=== PATIENT | female | born 1965 | race Caucasian/White ===

== ENCOUNTER 2022-02-14 02:46 | Emergency (ER) | payer OTHER ==
[~2022-02-14] VITALS: Ht 157.5 cm; Wt 129.3 kg
[2022-02-14] MEDS ORDERED: ONDANSETRON HCL INJ 2MG/ML 2ML 2 MG/ML VIAL IV STA (03:12)
[2022-02-14] MEDS ORDERED: SODIUM CHLORIDE FLUSH 10 ML SYR IV PRN (03:15)
[2022-02-14] MEDS ORDERED: SODIUM CHLORIDE 0.9% 1000ML 1,000 ML IV SCH (03:15)
[2022-02-14] MEDS ORDERED: Morphine 4mg INJECTION 4 MG/ML INJ IV ONE (03:15)
[2022-02-14 03:25] LABS: BASOPHILS # (AUTO) 0.2 (0.0-0.1); BASOPHILS % 0.7 % (0.0-1.0); EOSINOPHILS # (AUTO) 0.2 (0.0-0.4); HEMATOCRIT 49.6 % (34.2-44.1); HEMOGLOBIN 15.8 g/dL (12.0-16.0); LYMPHOCYTES # (AUTO) 10.4 (1.0-3.2); MEAN CORPUSCULAR HEMOGLOBIN 29.8 pg (28-32); MEAN CORPUSCULAR HGB CONC 31.9 g/dL (31-35); MEAN CORPUSCULAR VOLUME 93.6 fL (81-99); MONOCYTES # (AUTO) 1.4 (0.2-0.8); NEUTROPHILS # (AUTO) 10.6 (2.1-6.9); NEUTROPHILS % 46.1 % (38.7-80.0); PLATELET COUNT 338 x10e3/uL (140-360); RED CELL DISTRIBUTION WIDTH 13.9 % (11.7-14.4)
[2022-02-14 03:34] LABS: INR 0.97; PROTHROMBIN TIME 13.8 seconds (11.9-14.5)
[2022-02-14 03:35] LABS: PARTIAL THROMBOPLASTIN TIME 23.8 seconds (23.8-35.5)
[2022-02-14 03:44] LABS: ALBUMIN 4.3 g/dL (3.5-5.0); ALBUMIN/GLOBULIN RATIO 1.1 (0.8-2.0); ANION GAP 18.9 mmol/L (8-16); CREATININE, SERUM 2.75 mg/dL (0.57-1.11); POTASSIUM 3.9 mmol/L (3.5-5.1)
[2022-02-14 04:41] LABS: CLARITY,URINE SL CLOUDY (CLEAR); COLOR,URINE YELLOW (YELLOW); KETONES,URINE TRACE (NEGATIVE); LEUKOCYTE ESTERASE ,URINE NEGATIVE (NEGATIVE); NITRITE,URINE NEGATIVE (NEGATIVE); PROTEIN,URINE DIPSTICK TRACE (NEGATIVE); URINE UROBILINOGEN 0.2 mg/dL (0.2 - 1)
[2022-02-14 04:43] LABS: BACTERIA,URINE MODERATE /HPF; EPITHELIAL CELLS,URINE MANY /LPF; RBC,URINE 0-5 /HPF (0-5)
[2022-02-14 04:44] LABS: YEAST,URINE FEW
[2022-02-14] MEDS ORDERED: ONDANSETRON ODT4 MG PO (05:07)
[2022-02-14] MEDS ORDERED: CEFDINIR300 MG PO (05:07)
[2022-02-14 05:58] VITALS: BP 107/62
== END 2022-02-14 05:19 | disposition home or self-care (01) ==
LOC: ER 02:52
DX: R11.2 Nausea with vomiting, unspecified (principal); N30.90 Cystitis, unspecified without hematuria; R10.31 Right lower quadrant pain; M54.50 Low back pain, unspecified; I12.9 Hypertensive chronic kidney disease with stage 1 through stage 4 chronic kidney disease, or unspecified chronic kidney disease; E11.22 Type 2 diabetes mellitus with diabetic chronic kidney disease; E11.65 Type 2 diabetes mellitus with hyperglycemia; N18.30 Chronic kidney disease, stage 3 unspecified; K76.0 Fatty (change of) liver, not elsewhere classified
CPT/HCPCS: 36415; 74176; 80053; 81001; 85025; 85610; 85730; 99284; J2270; J2405; J7030

== ENCOUNTER 2022-08-07 13:12 | Inpatient (IN) | payer OTHER ==
[~2022-08-07] VITALS: Ht 157.5 cm; Wt 129.3 kg
[~2022-08-07 13:12] MED LIST: CEFDINIR300 MG PO; ONDANSETRON ODT4 MG PO
[2022-08-07 13:57] LABS: BASOPHILS # (AUTO) 0.1 (0.0-0.1); BASOPHILS % 0.5 % (0.0-1.0); EOSINOPHILS # (AUTO) 0.3 (0.0-0.4); EOSINOPHILS % 1.1 % (0.0-6.0); HEMATOCRIT 40.9 % (34.2-44.1); HEMOGLOBIN 13.4 g/dL (12.0-16.0); LYMPHOCYTES # (AUTO) 10.6 (1.0-3.2); LYMPHOCYTES % 34.4 % (18.0-39.1); MEAN CORPUSCULAR HEMOGLOBIN 29.8 pg (28-32); MEAN CORPUSCULAR HGB CONC 32.8 g/dL (31-35); MEAN CORPUSCULAR VOLUME 91.1 fL (81-99); MONOCYTES # (AUTO) 2.1 (0.2-0.8); MONOCYTES % 6.8 % (4.4-11.3); NEUTROPHILS # (AUTO) 16.9 (2.1-6.9); NEUTROPHILS % 54.7 % (38.7-80.0); PLATELET COUNT 376 x10e3/uL (140-360); RED BLOOD COUNT 4.49 x10e6/uL (3.6-5.1); RED CELL DISTRIBUTION WIDTH 14.7 % (11.7-14.4)
[2022-08-07] MEDS ORDERED: Vancomycin IV 1 GM in SODIUM CHLORIDE 0.9% 250ML 250 ML IV SCH (14:00)
[2022-08-07] MEDS: HYDROCODONE/APAP 5MG-325MG TAB PO PRN ×2 (14:02→19:02)
[2022-08-07 14:11] LABS: ALANINE AMINOTRANSFERASE 14 IU/L (0-55); ALBUMIN 3.4 g/dL (3.5-5.0); ALBUMIN/GLOBULIN RATIO 0.8 (0.8-2.0); ALKALINE PHOSPHATASE 43 IU/L (40-150); ANION GAP 20.2 mmol/L (8-16); BLOOD UREA NITROGEN 44 mg/dL (7-26); BUN/CREATININE RATIO 24 (6-25); CALCIUM 9.6 mg/dL (8.4-10.2); CARBON DIOXIDE 22 mmol/L (22-29); CHLORIDE 100 mmol/L (98-107); CREATININE, SERUM 1.84 mg/dL (0.57-1.11); GLUCOSE 207 mg/dL (74-118); POTASSIUM 4.2 mmol/L (3.5-5.1); SODIUM 138 mmol/L (136-145)
[2022-08-07] MEDS ORDERED: DEXTROSE 50% SYRINGE 50 ML IV PRN ×2 (14:15→15:00)
[2022-08-07] MEDS ORDERED: ONDANSETRON HCL INJ 2MG/ML 2ML 2 MG/ML VIAL IV PRN ×2 (14:15→14:45)
[2022-08-07] MEDS ORDERED: SODIUM CHLORIDE 0.9% 1000ML 1,000 ML IV ONE (14:30)
[2022-08-07] MEDS ORDERED: SODIUM CHLORIDE FLUSH 10 ML SYR INJ PRN (14:45)
[2022-08-07] MEDS: LINEZOLID 600 MG/D5W 300ML 300 ML IV SCH (14:55)
[2022-08-07] MEDS ORDERED: HYDRALAZINE HCL 20 MG/ML VIAL IV PRN (15:00)
[2022-08-07] MEDS ORDERED: ACETAMINOPHEN 325 MG TAB PO PRN (15:00)
[2022-08-07] MEDS: INSULIN REGULAR, HUMAN 100 UNIT/1 ML SQ SCH ×2 (16:30→21:44)
[2022-08-07] MEDS ORDERED: INSULIN REGULAR, HUMAN 100 UNIT/1 ML SQ SCH (16:30)
[2022-08-07 16:39] VITALS: BP 100/51; PULSE 81; RESP 20; TEMP 98.9; O2SAT 96
[2022-08-07] MEDS ORDERED: OMEGA 3 1,0001 EACH PO (16:46)
[2022-08-07] MEDS ORDERED: NOVOLOG100 UNIT/1 SC (16:46)
[2022-08-07] MEDS ORDERED: BASAGLAR K100 UNIT/1 SQ (16:46)
[2022-08-07] MEDS ORDERED: JARDIANCE25 MG PO (16:46)
[2022-08-07] MEDS ORDERED: FENOFIBRATE134 MG PO (16:46)
[2022-08-07] MEDS ORDERED: MULTI-VITAMIN1 EACH PO (16:46)
[2022-08-07] MEDS ORDERED: ASPIRIN81 MG PO (16:46)
[2022-08-07] MEDS ORDERED: AMLODIPINE BESYL5 MG PO (16:46)
[2022-08-07] MEDS ORDERED: ZESTRIL10 MG PO (16:46)
[2022-08-07] MEDS ORDERED: BUPROPION HCL100 MG PO (16:46)
[2022-08-07] MEDS ORDERED: TRINTELLIX10 MG PO (16:46)
[2022-08-07] MEDS ORDERED: HYDROCHLOROTHIA25 MG PO (16:46)
[2022-08-07 20:00] VITALS: BP 91/52; PULSE 75; RESP 17; TEMP 98.2; O2SAT 94
[2022-08-07] MEDS: FENOFIBRATE 145 MG TAB PO SCH (20:41)
[2022-08-07] MEDS: SODIUM CHLORIDE 0.9% 1000ML 1,000 ML IV SCH (20:42)
[2022-08-07 20:57] VITALS: BP 110/62; PULSE 82; RESP 21; TEMP 99.1; O2SAT 97
[2022-08-07 21:00] VITALS: BP 110/62; PULSE 82; RESP 20; TEMP 99.1; O2SAT 97
[2022-08-07] MEDS: INSULIN GLARGINE 100 UNITS/ML VIAL SQ SCH (21:43)
[2022-08-08] VITALS (8 sets, daily range): BP systolic 91–137; BP diastolic 52–87; PULSE 73–86; RESP 18–20; TEMP 98–98.8; O2SAT 93–98
[2022-08-08] MEDS: HYDROCODONE/APAP 5MG-325MG TAB PO PRN ×6 (00:49→15:56)
[2022-08-08] MEDS: Morphine 4mg INJECTION 4 MG/ML INJ IV PRN ×6 (05:34→23:12)
[2022-08-08 07:14] LABS: BASOPHILS # (AUTO) 0.2 (0.0-0.1); BASOPHILS % 0.6 % (0.0-1.0); EOSINOPHILS # (AUTO) 0.5 (0.0-0.4); EOSINOPHILS % 1.5 % (0.0-6.0); HEMATOCRIT 37.2 % (34.2-44.1); HEMOGLOBIN 11.9 g/dL (12.0-16.0); LYMPHOCYTES % 40.1 % (18.0-39.1); MEAN CORPUSCULAR HEMOGLOBIN 29.6 pg (28-32); MEAN CORPUSCULAR VOLUME 92.5 fL (81-99); MONOCYTES # (AUTO) 2.5 (0.2-0.8); MONOCYTES % 8.2 % (4.4-11.3); NEUTROPHILS # (AUTO) 14.1 (2.1-6.9); PLATELET COUNT 302 x10e3/uL (140-360); RED BLOOD COUNT 4.02 x10e6/uL (3.6-5.1); RED CELL DISTRIBUTION WIDTH 14.8 % (11.7-14.4)
[2022-08-08 07:29] LABS: CALCIUM 8.9 mg/dL (8.4-10.2); CREATININE, SERUM 1.96 mg/dL (0.57-1.11)
[2022-08-08] MEDS: BUPROPION HCL 100 MG TAB PO SCH (08:11)
[2022-08-08] MEDS: MULTIVITAMINS/MINERALS TAB PO SCH (08:12)
[2022-08-08] MEDS: SITAGLIPTIN 100 MG TAB PO SCH (08:12)
[2022-08-08] MEDS: OMEGA 3 POLYUNSAT FATTY ACIDS 1000 MG SOFTGEL PO SCH (08:12)
[2022-08-08] MEDS: SODIUM CHLORIDE 0.9% 1000ML 1,000 ML IV SCH ×2 (08:12→16:01)
[2022-08-08] MEDS: LINEZOLID 600 MG/D5W 300ML 300 ML IV SCH ×2 (08:13→20:35)
[2022-08-08] MEDS: INSULIN REGULAR, HUMAN 100 UNIT/1 ML SQ SCH ×5 (08:29→20:53)
[2022-08-08] MEDS: VORTIOXETINE HYDROBROMIDE 10 MG PO SCH (09:00)
[2022-08-08] MEDS: AMLODIPINE BESYLATE 5 MG TAB PO SCH (09:00)
[2022-08-08 11:41] LABS: EOSINOPHILS % (MANUAL) 3 % (0-7); LYMPHOCYTES % (MANUAL) 41 % (19-48); MONOCYTES % (MANUAL) 7 % (3.4-9.0); NEUTROPHILS % (MANUAL) 47 % (40-74); PLATELET ESTIMATE ADEQUATE; PLATELET MORPHOLOGY COMMENT NORMAL; RBC MORPHOLOGY COMMENT NORMAL
[2022-08-08] MEDS: ONDANSETRON HCL INJ 2MG/ML 2ML 2 MG/ML VIAL IV PRN ×2 (12:15→17:56)
[2022-08-08] MEDS ORDERED: AMIODARONE HCL 200 MG TAB PO SCH (15:48)
[2022-08-08 18:16] LABS: TOTAL PROTEIN, URINE < 6.8 mg/dL (1-14)
[2022-08-08 18:31] LABS: SODIUM,URINE 45 mmol/L
[2022-08-08] MEDS: FENOFIBRATE 145 MG TAB PO SCH (20:35)
[2022-08-08] MEDS: INSULIN GLARGINE 100 UNITS/ML VIAL SQ SCH (20:54)
[2022-08-09] VITALS (9 sets, daily range): BP systolic 106–123; BP diastolic 60–80; PULSE 76–102; RESP 18–20; TEMP 97.7–98.6; O2SAT 90–96
[2022-08-09] MEDS: Morphine 4mg INJECTION 4 MG/ML INJ IV PRN ×3 (03:43→18:15)
[2022-08-09] MEDS: ONDANSETRON HCL INJ 2MG/ML 2ML 2 MG/ML VIAL IV PRN ×3 (04:19→18:14)
[2022-08-09 06:38] LABS: ANION GAP 18.7 mmol/L (8-16); CALCIUM 8.9 mg/dL (8.4-10.2); CREATININE, SERUM 2.37 mg/dL (0.57-1.11); POTASSIUM 4.7 mmol/L (3.5-5.1)
[2022-08-09] MEDS: BUPROPION HCL 100 MG TAB PO SCH (08:21)
[2022-08-09] MEDS: OMEGA 3 POLYUNSAT FATTY ACIDS 1000 MG SOFTGEL PO SCH (08:21)
[2022-08-09] MEDS: MULTIVITAMINS/MINERALS TAB PO SCH (08:22)
[2022-08-09] MEDS: SITAGLIPTIN 100 MG TAB PO SCH (08:22)
[2022-08-09] MEDS: AMLODIPINE BESYLATE 5 MG TAB PO SCH (08:22)
[2022-08-09] MEDS: AMIODARONE HCL 200 MG TAB PO SCH ×2 (08:22→16:23)
[2022-08-09] MEDS: VORTIOXETINE HYDROBROMIDE 10 MG PO SCH (08:23)
[2022-08-09] MEDS: LINEZOLID 600 MG/D5W 300ML 300 ML IV SCH ×2 (08:23→21:14)
[2022-08-09] MEDS: SODIUM CHLORIDE 0.9% 1000ML 1,000 ML IV SCH (08:26)
[2022-08-09] MEDS: INSULIN REGULAR, HUMAN 100 UNIT/1 ML SQ SCH ×4 (08:30→21:33)
[2022-08-09] MEDS: HYDROCODONE/APAP 5MG-325MG TAB PO PRN ×2 (08:31→16:23)
[2022-08-09] MEDS ORDERED: LIDOCAINE HCL 1% LOCAL INJ 20 ML VIAL INJ ONE (13:00)
[2022-08-09 16:47] LABS: CLARITY,URINE CLEAR (CLEAR); COLOR,URINE YELLOW (YELLOW); LEUKOCYTE ESTERASE ,URINE NEGATIVE (NEGATIVE); NITRITE,URINE NEGATIVE (NEGATIVE)
[2022-08-09 16:48] LABS: KETONES,URINE NEGATIVE (NEGATIVE); PROTEIN,URINE DIPSTICK NEGATIVE (NEGATIVE); URINE UROBILINOGEN 0.2 mg/dL (0.2 - 1)
[2022-08-09 17:06] LABS: BACTERIA,URINE FEW /HPF; EPITHELIAL CELLS,URINE FEW /LPF; YEAST,URINE MODERATE
[2022-08-09 17:19] LABS: EOSINOPHIL SMEAR,URINE NONE SEEN (NONE SEEN)
[2022-08-09] MEDS: SODIUM BICARBONATE 650 MG TAB PO SCH (18:14)
[2022-08-09 18:47] LABS: CREATININE,URINE RANDOM 112.14 mg/dL (47-110); TOTAL PROTEIN, URINE 10.3 mg/dL (1-14)
[2022-08-09 18:48] LABS: SODIUM,URINE < 20 mmol/L
[2022-08-09] MEDS: FENOFIBRATE 145 MG TAB PO SCH (21:14)
[2022-08-09] MEDS: INSULIN GLARGINE 100 UNITS/ML VIAL SQ SCH (21:34)
[2022-08-10] VITALS (7 sets, daily range): BP systolic 111–128; BP diastolic 64–79; PULSE 69–76; RESP 18–22; TEMP 97.7–98.8; O2SAT 94–96
[2022-08-10] MEDS: ONDANSETRON HCL INJ 2MG/ML 2ML 2 MG/ML VIAL IV PRN ×3 (01:37→11:45)
[2022-08-10] MEDS: Morphine 4mg INJECTION 4 MG/ML INJ IV PRN ×5 (01:38→21:21)
[2022-08-10 06:48] LABS: ANION GAP 16.7 mmol/L (8-16); CALCIUM 8.3 mg/dL (8.4-10.2); CREATININE, SERUM 2.56 mg/dL (0.57-1.11); MAGNESIUM 2.1 MG/DL (1.3-2.1); PHOSPHORUS 4.9 MG/DL (2.3-4.7); POTASSIUM 4.7 mmol/L (3.5-5.1)
[2022-08-10] MEDS: INSULIN REGULAR, HUMAN 100 UNIT/1 ML SQ SCH ×4 (08:20→21:35)
[2022-08-10] MEDS: VORTIOXETINE HYDROBROMIDE 10 MG PO SCH (09:00)
[2022-08-10] MEDS: ENOXAPARIN SODIUM INJ 100 MG/ML SYR SC SCH ×2 (09:46→21:19)
[2022-08-10] MEDS: MULTIVITAMINS/MINERALS TAB PO SCH (09:47)
[2022-08-10] MEDS: SITAGLIPTIN 100 MG TAB PO SCH (09:47)
[2022-08-10] MEDS: BUPROPION HCL 100 MG TAB PO SCH (09:47)
[2022-08-10] MEDS: AMIODARONE HCL 200 MG TAB PO SCH ×2 (09:47→17:02)
[2022-08-10] MEDS: ASPIRIN 81 MG CHEW TAB PO SCH (09:47)
[2022-08-10] MEDS: AMLODIPINE BESYLATE 5 MG TAB PO SCH (09:47)
[2022-08-10] MEDS: OMEGA 3 POLYUNSAT FATTY ACIDS 1000 MG SOFTGEL PO SCH (09:47)
[2022-08-10] MEDS: SODIUM BICARBONATE 650 MG TAB PO SCH ×2 (09:48→17:02)
[2022-08-10] MEDS: LINEZOLID 600 MG/D5W 300ML 300 ML IV SCH ×2 (09:55→21:28)
[2022-08-10] MEDS: SODIUM CHLORIDE 0.9% 1000ML 1,000 ML IV SCH ×2 (09:56→21:26)
[2022-08-10] MEDS: HYDROCODONE/APAP 5MG-325MG TAB PO PRN ×2 (11:45→19:05)
[2022-08-10] MEDS: FENOFIBRATE 145 MG TAB PO SCH (21:19)
[2022-08-10] MEDS: INSULIN GLARGINE 100 UNITS/ML VIAL SQ SCH (21:37)
[2022-08-11] VITALS (7 sets, daily range): BP systolic 107–146; BP diastolic 51–86; PULSE 69–78; RESP 16–22; TEMP 97.8–99; O2SAT 90–97
[2022-08-11] MEDS: ONDANSETRON HCL INJ 2MG/ML 2ML 2 MG/ML VIAL IV PRN ×3 (06:01→20:34)
[2022-08-11] MEDS: Morphine 4mg INJECTION 4 MG/ML INJ IV PRN ×3 (06:01→19:49)
[2022-08-11 06:49] LABS: BASOPHILS # (AUTO) 0.1 (0.0-0.1); BASOPHILS % 0.2 % (0.0-1.0); EOSINOPHILS # (AUTO) 0.2 (0.0-0.4); EOSINOPHILS % 0.5 % (0.0-6.0); HEMATOCRIT 35.3 % (34.2-44.1); HEMOGLOBIN 10.9 g/dL (12.0-16.0); LYMPHOCYTES # (AUTO) 10.9 (1.0-3.2); LYMPHOCYTES % 33.7 % (18.0-39.1); MEAN CORPUSCULAR HEMOGLOBIN 30.9 pg (28-32); MEAN CORPUSCULAR HGB CONC 30.9 g/dL (31-35); MONOCYTES % 6.2 % (4.4-11.3); NEUTROPHILS # (AUTO) 17.7 (2.1-6.9); NEUTROPHILS % 55.1 % (38.7-80.0); PLATELET COUNT 360 x10e3/uL (140-360); RED BLOOD COUNT 3.53 x10e6/uL (3.6-5.1); RED CELL DISTRIBUTION WIDTH 15.6 % (11.7-14.4)
[2022-08-11 07:22] LABS: ALBUMIN 2.9 g/dL (3.5-5.0); ALBUMIN/GLOBULIN RATIO 0.7 (0.8-2.0); ANION GAP 18.5 mmol/L (8-16); CREATININE, SERUM 2.7 mg/dL (0.57-1.11); POTASSIUM 4.5 mmol/L (3.5-5.1)
[2022-08-11] MEDS: VORTIOXETINE HYDROBROMIDE 10 MG PO SCH (08:01)
[2022-08-11] MEDS: AMLODIPINE BESYLATE 5 MG TAB PO SCH (09:00)
[2022-08-11] MEDS: METOPROLOL SUCCINATE 25 MG TAB XL PO SCH (09:00)
[2022-08-11] MEDS: LINEZOLID 600 MG/D5W 300ML 300 ML IV SCH (09:32)
[2022-08-11] MEDS: ASPIRIN 81 MG CHEW TAB PO SCH (09:34)
[2022-08-11] MEDS: MULTIVITAMINS/MINERALS TAB PO SCH (09:34)
[2022-08-11] MEDS: SITAGLIPTIN 100 MG TAB PO SCH (09:34)
[2022-08-11] MEDS: SODIUM BICARBONATE 650 MG TAB PO SCH ×2 (09:34→17:52)
[2022-08-11] MEDS: BUPROPION HCL 100 MG TAB PO SCH (09:35)
[2022-08-11] MEDS: ENOXAPARIN SODIUM INJ 100 MG/ML SYR SC SCH ×2 (09:35→19:50)
[2022-08-11] MEDS: HYDROCODONE/APAP 5MG-325MG TAB PO PRN ×3 (09:35→14:19)
[2022-08-11] MEDS: OMEGA 3 POLYUNSAT FATTY ACIDS 1000 MG SOFTGEL PO SCH (09:35)
[2022-08-11] MEDS: AMIODARONE HCL 200 MG TAB PO SCH (09:35)
[2022-08-11] MEDS: INSULIN REGULAR, HUMAN 100 UNIT/1 ML SQ SCH ×4 (09:36→20:41)
[2022-08-11 10:28] LABS: EOSINOPHILS % (MANUAL) 1 % (0-7); HYPOCHROMASIA SLIGHT; LYMPHOCYTES % (MANUAL) 33 % (19-48); METAMYELOCYTES % (MANUAL) 3 % (0-0); MONOCYTES % (MANUAL) 7 % (3.4-9.0); MYELOCYTES % (MANUAL) 2 % (0-0); NEUTROPHILS % (MANUAL) 52 % (40-74); PLATELET ESTIMATE ADEQUATE; PLATELET MORPHOLOGY COMMENT NORMAL; PROMYELOCYTES % (MANUAL) 1 % (0-0); RBC MORPHOLOGY COMMENT ABNORMAL
[2022-08-11 13:35] LABS: INR 1.34; PROTHROMBIN TIME 17.1 seconds (11.9-14.5)
[2022-08-11 13:36] LABS: PARTIAL THROMBOPLASTIN TIME 48.7 seconds (23.8-35.5)
[2022-08-11] MEDS: DRONEDARONE 400 MG TAB PO SCH (17:52)
[2022-08-11] MEDS: SODIUM CHLORIDE 0.9% 1000ML 1,000 ML IV SCH ×2 (17:54→19:49)
[2022-08-11] MEDS: CEFAZOLIN SODIUM 2 GM in SODIUM CHLORIDE 0.9% 100 ML IV SCH (18:03)
[2022-08-11] MEDS: FENOFIBRATE 145 MG TAB PO SCH (19:49)
[2022-08-11] MEDS: INSULIN GLARGINE 100 UNITS/ML VIAL SQ SCH (21:00)
[2022-08-12] VITALS (9 sets, daily range): BP systolic 106–147; BP diastolic 51–85; PULSE 64–92; RESP 18–22; TEMP 97.9–98.9; O2SAT 94–97
[2022-08-12 06:39] LABS: ANION GAP 16.3 mmol/L (8-16); CALCIUM 8.9 mg/dL (8.4-10.2); CREATININE, SERUM 2.42 mg/dL (0.57-1.11); POTASSIUM 4.3 mmol/L (3.5-5.1)
[2022-08-12] MEDS: INSULIN REGULAR, HUMAN 100 UNIT/1 ML SQ SCH ×4 (07:30→21:28)
[2022-08-12] MEDS: SODIUM BICARBONATE 650 MG TAB PO SCH ×2 (08:41→16:58)
[2022-08-12] MEDS: ENOXAPARIN SODIUM INJ 100 MG/ML SYR SC SCH (08:41)
[2022-08-12] MEDS: DRONEDARONE 400 MG TAB PO SCH ×2 (08:41→16:58)
[2022-08-12] MEDS: BUPROPION HCL 100 MG TAB PO SCH (08:41)
[2022-08-12] MEDS: CEFAZOLIN SODIUM 2 GM in SODIUM CHLORIDE 0.9% 100 ML IV SCH (08:41)
[2022-08-12] MEDS: MULTIVITAMINS/MINERALS TAB PO SCH (08:42)
[2022-08-12] MEDS: AMLODIPINE BESYLATE 5 MG TAB PO SCH (08:42)
[2022-08-12] MEDS: SITAGLIPTIN 100 MG TAB PO SCH (08:42)
[2022-08-12] MEDS: ASPIRIN 81 MG CHEW TAB PO SCH (08:42)
[2022-08-12] MEDS: OMEGA 3 POLYUNSAT FATTY ACIDS 1000 MG SOFTGEL PO SCH (08:43)
[2022-08-12] MEDS: METOPROLOL SUCCINATE 25 MG TAB XL PO SCH (08:44)
[2022-08-12] MEDS: SODIUM CHLORIDE 0.9% 1000ML 1,000 ML IV SCH (08:45)
[2022-08-12] MEDS: HYDROCODONE/APAP 5MG-325MG TAB PO PRN ×3 (08:53→21:19)
[2022-08-12] MEDS: VORTIOXETINE HYDROBROMIDE 10 MG PO SCH (09:00)
[2022-08-12] MEDS ORDERED: SODIUM CHLORIDE 0.9% 250ML 0 ML ONE (10:37)
[2022-08-12] MEDS ORDERED: LIDOCAINE HCL 1% LOCAL INJ 20 ML VIAL ONE (10:37)
[2022-08-12] MEDS ORDERED: SODIUM CHLORIDE 0.9% 250ML 250 ML ONE (10:54)
[2022-08-12] MEDS ORDERED: HEPARIN SOD (PORCINE) 1000 UNIT/ML SDV ONE (10:54)
[2022-08-12] MEDS ORDERED: ONDANSETRON HCL INJ 2MG/ML 2ML 2 MG/ML VIAL ONE (10:54)
[2022-08-12] MEDS ORDERED: MIDAZOLAM HCL 2 MG/2 ML VIAL ONE (10:54)
[2022-08-12] MEDS: APIXABAN 5 MG TABLET PO SCH (16:57)
[2022-08-12] MEDS: TRAMADOL HCL 50 MG TAB PO PRN (16:57)
[2022-08-12] MEDS: FENOFIBRATE 145 MG TAB PO SCH (21:18)
[2022-08-12] MEDS: INSULIN GLARGINE 100 UNITS/ML VIAL SQ SCH (21:26)
[2022-08-13] VITALS (10 sets, daily range): BP systolic 102–140; BP diastolic 52–74; PULSE 61–86; RESP 16–20; TEMP 97.7–99.6; O2SAT 92–98
[2022-08-13] MEDS: ONDANSETRON HCL INJ 2MG/ML 2ML 2 MG/ML VIAL IV PRN ×2 (01:10→08:14)
[2022-08-13] MEDS: TRAMADOL HCL 50 MG TAB PO PRN ×2 (01:10→11:47)
[2022-08-13] MEDS: SODIUM CHLORIDE 0.9% 1000ML 1,000 ML IV SCH (04:31)
[2022-08-13 06:25] LABS: BASOPHILS # (AUTO) 0.2 (0.0-0.1); BASOPHILS % 0.8 % (0.0-1.0); EOSINOPHILS # (AUTO) 0.1 (0.0-0.4); EOSINOPHILS % 0.3 % (0.0-6.0); HEMATOCRIT 32.8 % (34.2-44.1); HEMOGLOBIN 10.1 g/dL (12.0-16.0); LYMPHOCYTES # (AUTO) 10.4 (1.0-3.2); LYMPHOCYTES % 33.3 % (18.0-39.1); MEAN CORPUSCULAR HEMOGLOBIN 29.7 pg (28-32); MEAN CORPUSCULAR HGB CONC 30.8 g/dL (31-35); MEAN CORPUSCULAR VOLUME 96.5 fL (81-99); MONOCYTES # (AUTO) 1.6 (0.2-0.8); MONOCYTES % 5.1 % (4.4-11.3); NEUTROPHILS % 54.7 % (38.7-80.0); PLATELET COUNT 396 x10e3/uL (140-360); RED CELL DISTRIBUTION WIDTH 15.1 % (11.7-14.4)
[2022-08-13 06:41] LABS: ANION GAP 17.5 mmol/L (8-16); CALCIUM 8.6 mg/dL (8.4-10.2); POTASSIUM 4.5 mmol/L (3.5-5.1)
[2022-08-13] MEDS: INSULIN REGULAR, HUMAN 100 UNIT/1 ML SQ SCH ×4 (07:30→21:00)
[2022-08-13] MEDS ORDERED: SODIUM CHLORIDE 0.9% 250ML 0 ML ONE (08:02)
[2022-08-13 08:09] LABS: LYMPHOCYTES % (MANUAL) 29 % (19-48); METAMYELOCYTES % (MANUAL) 2 % (0-0); MONOCYTES % (MANUAL) 5 % (3.4-9.0); MYELOCYTES % (MANUAL) 6 % (0-0); NEUTROPHILS % (MANUAL) 58 % (40-74)
[2022-08-13 08:10] LABS: PLATELET ESTIMATE ADEQUATE
[2022-08-13 08:11] LABS: PLATELET MORPHOLOGY COMMENT NORMAL; POLYCHROMASIA FEW; RBC MORPHOLOGY COMMENT NORMAL
[2022-08-13] MEDS: BUPROPION HCL 100 MG TAB PO SCH (08:15)
[2022-08-13] MEDS: CEFAZOLIN SODIUM 2 GM in SODIUM CHLORIDE 0.9% 100 ML IV SCH (08:15)
[2022-08-13] MEDS: ASPIRIN 81 MG CHEW TAB PO SCH (08:16)
[2022-08-13] MEDS: DRONEDARONE 400 MG TAB PO SCH ×2 (08:17→16:27)
[2022-08-13] MEDS: VORTIOXETINE HYDROBROMIDE 10 MG PO SCH (08:17)
[2022-08-13] MEDS: HYDROCODONE/APAP 5MG-325MG TAB PO PRN ×2 (08:18→16:13)
[2022-08-13] MEDS: SITAGLIPTIN 100 MG TAB PO SCH (08:19)
[2022-08-13] MEDS: APIXABAN 5 MG TABLET PO SCH ×2 (08:20→16:27)
[2022-08-13] MEDS: SODIUM BICARBONATE 650 MG TAB PO SCH ×2 (09:36→16:27)
[2022-08-13] MEDS: MULTIVITAMINS/MINERALS TAB PO SCH (11:46)
[2022-08-13] MEDS: OMEGA 3 POLYUNSAT FATTY ACIDS 1000 MG SOFTGEL PO SCH (11:46)
[2022-08-13] MEDS: METOPROLOL SUCCINATE 25 MG TAB XL PO SCH (11:47)
[2022-08-13] MEDS: AMLODIPINE BESYLATE 5 MG TAB PO SCH (11:47)
[2022-08-13] MEDS ORDERED: ONDANSETRON HCL 4 MG ORAL DISINTEGRATING TAB PO PRN (12:15)
[2022-08-13] MEDS ORDERED: FUROSEMIDE INJ 10 MG/ML 2 ML VIAL IV ONE (13:45)
[2022-08-13] MEDS: FENOFIBRATE 145 MG TAB PO SCH (21:09)
[2022-08-13] MEDS: INSULIN GLARGINE 100 UNITS/ML VIAL SQ SCH (21:14)
[2022-08-14] VITALS (12 sets, daily range): BP systolic 122–156; BP diastolic 63–82; PULSE 50–90; RESP 16–22; TEMP 97.4–99.1; O2SAT 93–100
[2022-08-14] MEDS ORDERED: METOCLOPRAMIDE HCL 10 MG/2ML VIAL IV STA (00:04)
[2022-08-14] MEDS: HYDROCODONE/APAP 5MG-325MG TAB PO PRN ×2 (00:30→11:35)
[2022-08-14] MEDS: SODIUM CHLORIDE 0.9% 1000ML 1,000 ML IV SCH (00:39)
[2022-08-14] MEDS: METOCLOPRAMIDE HCL 10 MG/2ML VIAL IV SCH ×3 (05:40→17:08)
[2022-08-14 05:56] LABS: BASOPHILS % 0.2 % (0.0-1.0); EOSINOPHILS # (AUTO) 0.2 (0.0-0.4); EOSINOPHILS % 0.8 % (0.0-6.0); HEMATOCRIT 33.2 % (34.2-44.1); HEMOGLOBIN 10.3 g/dL (12.0-16.0); LYMPHOCYTES # (AUTO) 12.5 (1.0-3.2); LYMPHOCYTES % 39.2 % (18.0-39.1); MEAN CORPUSCULAR HEMOGLOBIN 29.5 pg (28-32); MEAN CORPUSCULAR VOLUME 95.1 fL (81-99); MONOCYTES % 6.1 % (4.4-11.3); NEUTROPHILS # (AUTO) 14.3 (2.1-6.9); PLATELET COUNT 426 x10e3/uL (140-360); RED BLOOD COUNT 3.49 x10e6/uL (3.6-5.1); RED CELL DISTRIBUTION WIDTH 14.8 % (11.7-14.4)
[2022-08-14 05:57] LABS: BASOPHILS # (AUTO) 0.1 (0.0-0.1)
[2022-08-14 06:29] LABS: ANION GAP 17.1 mmol/L (8-16); CALCIUM 8.6 mg/dL (8.4-10.2); CREATININE, SERUM 1.67 mg/dL (0.57-1.11); POTASSIUM 4.1 mmol/L (3.5-5.1)
[2022-08-14 06:32] LABS: ALBUMIN 2.6 g/dL (3.5-5.0); BILIRUBIN,DIRECT 0.2 mg/dL (0.0-0.5)
[2022-08-14 06:33] LABS: THYROID STIMULATING HORMONE 4.921 uIU/mL (0.350-4.940)
[2022-08-14] MEDS: CEFAZOLIN SODIUM 2 GM in SODIUM CHLORIDE 0.9% 100 ML IV SCH (08:09)
[2022-08-14] MEDS: BUPROPION HCL 100 MG TAB PO SCH (08:10)
[2022-08-14] MEDS: DRONEDARONE 400 MG TAB PO SCH ×2 (08:10→17:06)
[2022-08-14] MEDS: APIXABAN 5 MG TABLET PO SCH ×2 (08:10→17:06)
[2022-08-14] MEDS: AMLODIPINE BESYLATE 5 MG TAB PO SCH (08:10)
[2022-08-14] MEDS: METOPROLOL SUCCINATE 25 MG TAB XL PO SCH (08:11)
[2022-08-14] MEDS: VORTIOXETINE HYDROBROMIDE 10 MG PO SCH (08:11)
[2022-08-14] MEDS: TRAMADOL HCL 50 MG TAB PO PRN ×3 (08:12→21:02)
[2022-08-14] MEDS: INSULIN REGULAR, HUMAN 100 UNIT/1 ML SQ SCH ×4 (08:14→20:59)
[2022-08-14 09:17] LABS: BAND NEUTROPHILS % (MANUAL) 1 %; LYMPHOCYTES % (MANUAL) 24 % (19-48); MONOCYTES % (MANUAL) 7 % (3.4-9.0); NEUTROPHILS % (MANUAL) 68 % (40-74)
[2022-08-14 09:18] LABS: PLATELET ESTIMATE ADEQUATE; PLATELET MORPHOLOGY COMMENT NORMAL; RBC MORPHOLOGY COMMENT NORMAL
[2022-08-14] MEDS: SITAGLIPTIN 100 MG TAB PO SCH (09:29)
[2022-08-14] MEDS: SODIUM BICARBONATE 650 MG TAB PO SCH ×2 (09:29→17:06)
[2022-08-14] MEDS: OMEGA 3 POLYUNSAT FATTY ACIDS 1000 MG SOFTGEL PO SCH (09:29)
[2022-08-14] MEDS: MULTIVITAMINS/MINERALS TAB PO SCH (09:30)
[2022-08-14 10:53] LABS: CLARITY,URINE SL CLOUDY (CLEAR); COLOR,URINE YELLOW (YELLOW); LEUKOCYTE ESTERASE ,URINE NEGATIVE (NEGATIVE); NITRITE,URINE NEGATIVE (NEGATIVE)
[2022-08-14 10:54] LABS: BACTERIA,URINE FEW /HPF; EPITHELIAL CELLS,URINE FEW /LPF; KETONES,URINE 1+ (NEGATIVE); PROTEIN,URINE DIPSTICK 1+ (NEGATIVE); URINE UROBILINOGEN 0.2 mg/dL (0.2 - 1)
[2022-08-14 10:55] LABS: YEAST,URINE FEW
[2022-08-14] MEDS ORDERED: FUROSEMIDE INJ 10 MG/ML 2 ML VIAL IV ONE (11:30)
[2022-08-14] MEDS: IPRATROPIUM BROMIDE 0.02% 2.5 ML NEB NEB SCH ×2 (13:50→19:40)
[2022-08-14] MEDS: MEROPENEM 1 GM in SODIUM CHLORIDE 0.9% 100 ML IV SCH (17:06)
[2022-08-14] MEDS: INSULIN GLARGINE 100 UNITS/ML VIAL SQ SCH (21:00)
[2022-08-14] MEDS: FENOFIBRATE 145 MG TAB PO SCH (21:03)
[2022-08-15] VITALS (13 sets, daily range): BP systolic 117–151; BP diastolic 45–92; PULSE 50–102; RESP 18–25; TEMP 97.1–98.9; O2SAT 96–100
[2022-08-15] MEDS: METOCLOPRAMIDE HCL 10 MG/2ML VIAL IV SCH ×5 (00:15→22:58)
[2022-08-15] MEDS: TRAMADOL HCL 50 MG TAB PO PRN ×4 (04:12→22:59)
[2022-08-15] MEDS: IPRATROPIUM BROMIDE 0.02% 2.5 ML NEB NEB SCH ×3 (07:04→19:15)
[2022-08-15] MEDS: INSULIN REGULAR, HUMAN 100 UNIT/1 ML SQ SCH ×4 (07:30→21:48)
[2022-08-15] MEDS: VORTIOXETINE HYDROBROMIDE 10 MG PO SCH (09:00)
[2022-08-15] MEDS: AMLODIPINE BESYLATE 5 MG TAB PO SCH (09:00)
[2022-08-15] MEDS: OMEGA 3 POLYUNSAT FATTY ACIDS 1000 MG SOFTGEL PO SCH (09:48)
[2022-08-15] MEDS: MULTIVITAMINS/MINERALS TAB PO SCH (09:48)
[2022-08-15] MEDS: SODIUM BICARBONATE 650 MG TAB PO SCH ×2 (09:48→16:59)
[2022-08-15] MEDS: APIXABAN 5 MG TABLET PO SCH ×2 (09:48→16:59)
[2022-08-15] MEDS: SITAGLIPTIN 100 MG TAB PO SCH (09:49)
[2022-08-15] MEDS: DRONEDARONE 400 MG TAB PO SCH ×2 (09:49→17:00)
[2022-08-15] MEDS: METOPROLOL SUCCINATE 25 MG TAB XL PO SCH ×2 (09:50→17:00)
[2022-08-15] MEDS: BUPROPION HCL 100 MG TAB PO SCH (09:51)
[2022-08-15] MEDS ORDERED: FUROSEMIDE INJ 10 MG/ML 2 ML VIAL IV ONE (11:45)
[2022-08-15] MEDS: MEROPENEM 1 GM in SODIUM CHLORIDE 0.9% 100 ML IV SCH (15:11)
[2022-08-15] MEDS: FENOFIBRATE 145 MG TAB PO SCH (20:56)
[2022-08-15] MEDS: INSULIN GLARGINE 100 UNITS/ML VIAL SQ SCH (21:47)
[2022-08-16] VITALS (8 sets, daily range): BP systolic 126–160; BP diastolic 68–106; PULSE 68–115; RESP 20–23; TEMP 97.7–97.8; O2SAT 95–98
[2022-08-16] MEDS: METOCLOPRAMIDE HCL 10 MG/2ML VIAL IV SCH ×2 (04:45→11:38)
[2022-08-16] MEDS: TRAMADOL HCL 50 MG TAB PO PRN ×2 (04:46→11:38)
[2022-08-16 05:20] LABS: BASOPHILS # (AUTO) 0.1 (0.0-0.1); BASOPHILS % 0.2 % (0.0-1.0); EOSINOPHILS # (AUTO) 0.4 (0.0-0.4); HEMATOCRIT 33.2 % (34.2-44.1); HEMOGLOBIN 10.7 g/dL (12.0-16.0); LYMPHOCYTES # (AUTO) 15.2 (1.0-3.2); LYMPHOCYTES % 41.8 % (18.0-39.1); MEAN CORPUSCULAR HEMOGLOBIN 29.9 pg (28-32); MEAN CORPUSCULAR HGB CONC 32.2 g/dL (31-35); MEAN CORPUSCULAR VOLUME 92.7 fL (81-99); MONOCYTES # (AUTO) 2.2 (0.2-0.8); NEUTROPHILS # (AUTO) 15.6 (2.1-6.9); NEUTROPHILS % 42.7 % (38.7-80.0); PLATELET COUNT 440 x10e3/uL (140-360); RED BLOOD COUNT 3.58 x10e6/uL (3.6-5.1); RED CELL DISTRIBUTION WIDTH 14.7 % (11.7-14.4)
[2022-08-16 05:41] LABS: CALCIUM 9.2 mg/dL (8.4-10.2); CREATININE, SERUM 1.21 mg/dL (0.57-1.11)
[2022-08-16 05:42] LABS: % IRON SATURATION 13 % (15-50); IRON 40 ug/dL (50-170); TOTAL IRON BINDING CAPACITY 318 ug/dL (261-478); TRANSFERRIN 227 mg/dL (180-382)
[2022-08-16] MEDS: IPRATROPIUM BROMIDE 0.02% 2.5 ML NEB NEB SCH ×2 (07:09→15:16)
[2022-08-16] MEDS: INSULIN REGULAR, HUMAN 100 UNIT/1 ML SQ SCH ×2 (07:30→12:01)
[2022-08-16] MEDS: METOPROLOL SUCCINATE 25 MG TAB XL PO SCH (08:50)
[2022-08-16] MEDS: AMLODIPINE BESYLATE 5 MG TAB PO SCH (08:50)
[2022-08-16] MEDS: DRONEDARONE 400 MG TAB PO SCH (08:51)
[2022-08-16] MEDS: OMEGA 3 POLYUNSAT FATTY ACIDS 1000 MG SOFTGEL PO SCH (08:51)
[2022-08-16] MEDS: APIXABAN 5 MG TABLET PO SCH (08:51)
[2022-08-16] MEDS: SITAGLIPTIN 100 MG TAB PO SCH (08:51)
[2022-08-16] MEDS: MULTIVITAMINS/MINERALS TAB PO SCH (08:51)
[2022-08-16] MEDS: BUPROPION HCL 100 MG TAB PO SCH (08:51)
[2022-08-16] MEDS: SODIUM BICARBONATE 650 MG TAB PO SCH (08:51)
[2022-08-16] MEDS: VORTIOXETINE HYDROBROMIDE 10 MG PO SCH (08:52)
[2022-08-16] MEDS ORDERED: FUROSEMIDE 40 MG TAB PO SCH (09:00)
[2022-08-16 10:49] LABS: MONOCYTES % (MANUAL) 5 % (3.4-9.0); MYELOCYTES % (MANUAL) 1 % (0-0)
[2022-08-16 10:51] LABS: BLAST CELLS % MANUAL 2; LYMPHOCYTES % (MANUAL) 36 % (19-48); METAMYELOCYTES % (MANUAL) 3 % (0-0); NEUTROPHILS % (MANUAL) 51 % (40-74)
[2022-08-16 10:52] LABS: PLATELET ESTIMATE ADEQUATE
[2022-08-16 10:53] LABS: PLATELET MORPHOLOGY COMMENT NORMAL
[2022-08-16] MEDS ORDERED: MULTAQ 400MG T400 MG PO (11:41)
[2022-08-16] MEDS ORDERED: TOPROL XL25 MG PO (11:41)
[2022-08-16] MEDS ORDERED: ELIQUIS5 MG PO (11:41)
[2022-08-16] MEDS ORDERED: PROTONIX20 MG PO (11:41)
[2022-08-16] MEDS ORDERED: LASIX20 MG PO (11:42)
[2022-08-16] MEDS ORDERED: IRON SUCROSE 100 MG in SODIUM CHLORIDE 0.9% 100 ML IV SCH (11:45)
[2022-08-16] MEDS ORDERED: ULTRAM 50MG50 MG PO ×2 (11:46→17:18)
[2022-08-16] MEDS: MEROPENEM 1 GM in SODIUM CHLORIDE 0.9% 100 ML IV SCH (13:47)
== END 2022-08-16 15:34 | disposition home or self-care (01) | DRG 871 ==
LOC: ER 13:24 → ERHOLD 14:41 → MED/SURG2 16:03
PROVIDERS: ADMIT Internal Medicine; ATTEND Internal Medicine
PROC: 0J9Q0ZZ Drainage of Right Foot Subcutaneous Tissue and Fascia, Open Approach (ICD-10-PCS; principal; 2022-08-09)
PROC: 3E03329 Introduction of Other Anti-infective into Peripheral Vein, Percutaneous Approach (ICD-10-PCS; 2022-08-09)
DX: A41.01 Sepsis due to Methicillin susceptible Staphylococcus aureus (principal); J18.9 Pneumonia, unspecified organism; N17.0 Acute kidney failure with tubular necrosis; C91.10 Chronic lymphocytic leukemia of B-cell type not having achieved remission; Z68.43 Body mass index [BMI] 50.0-59.9, adult; M86.8X7 Other osteomyelitis, ankle and foot; E22.2 Syndrome of inappropriate secretion of antidiuretic hormone; E87.20 Acidosis, unspecified; D84.89 Other immunodeficiencies; A41.9 Sepsis, unspecified organism; E11.65 Type 2 diabetes mellitus with hyperglycemia; E11.69 Type 2 diabetes mellitus with other specified complication; E11.22 Type 2 diabetes mellitus with diabetic chronic kidney disease; I12.9 Hypertensive chronic kidney disease with stage 1 through stage 4 chronic kidney disease, or unspecified chronic kidney disease; E66.01 Morbid (severe) obesity due to excess calories; I48.0 Paroxysmal atrial fibrillation; Z79.01 Long term (current) use of anticoagulants; B35.1 Tinea unguium; N18.32 Chronic kidney disease, stage 3b; G47.33 Obstructive sleep apnea (adult) (pediatric); Z87.891 Personal history of nicotine dependence; Z88.5 Allergy status to narcotic agent; Z88.0 Allergy status to penicillin; L60.0 Ingrowing nail; E86.0 Dehydration; F32.A Depression, unspecified; E78.00 Pure hypercholesterolemia, unspecified; Z79.899 Other long term (current) drug therapy; R09.02 Hypoxemia; E78.5 Hyperlipidemia, unspecified
CPT/HCPCS: 0223U; 36415; 36558; 71045; 71250; 74018; 74470; 76770; 76937; 77001; 80048; 80053; 80076; 80202; 81001; 81015; 82570; 82948; 83036; 83540; 83605; 83690; 83735; 83880; 84100; 84156; 84300; 84443; 84466; 85025; 85610; 85730; 87040; 87070; 87071; 87086; 87186; 87205; 93005; 93306; 93926; 93971; 94640; 94660; 94799; 96361; 99252; 99284; C1751; C1769; J0692; J1644; J1650; J1756; J1815; J1940; J2001; J2020; J2185; J2250; J2270; J2405; J2765; J7030; J7050; Q0162

== ENCOUNTER → 2022-11-04 | Outpatient (CLI) | payer OTHER ==
[~2022-11-04] MED LIST changes: +AMLODIPINE BESYL5 MG PO; +ASPIRIN81 MG PO; +BASAGLAR K100 UNIT/1 SQ; +BUPROPION HCL100 MG PO; +ELIQUIS5 MG PO; +FENOFIBRATE134 MG PO; +HYDROCHLOROTHIA25 MG PO; +JARDIANCE25 MG PO; +LASIX20 MG PO; +MULTAQ 400MG T400 MG PO; +MULTI-VITAMIN1 EACH PO; +NOVOLOG100 UNIT/1 SC; +OMEGA 3 1,0001 EACH PO; +PROTONIX20 MG PO; +TOPROL XL25 MG PO; +TRINTELLIX10 MG PO; +ULTRAM 50MG50 MG PO; +ZESTRIL10 MG PO
== END ==
LOC: DX 09:09
PROVIDERS: ATTEND Internal Medicine Infectious Disease
DX: M86.179 Other acute osteomyelitis, unspecified ankle and foot (principal)
CPT/HCPCS: 36589

== ENCOUNTER → 2023-01-20 | Day surgery (SDC) | payer OTHER ==
[2023-01-19 11:54] LABS: ANION GAP 16.2 mmol/L (8-16); CALCIUM 9.3 mg/dL (8.4-10.2); CREATININE, SERUM 1.86 mg/dL (0.57-1.11); POTASSIUM 4.2 mmol/L (3.5-5.1)
[~2023-01-20] MED LIST changes: +ACETAMINOPHEN 1000 MG/100 ML IV ONE; +BUPIVACAINE HCL 0.5% INJ 30 ML VIAL INJ ONE; +CLINDAMYCIN PHOS 900MG/ 50ML 50 ML IV ONE; +DEXAMETHASONE SOD PHOS INJ 4 MG/ML SDV ONE; +FENTANYL CITRATE/PF 100MCG/2 ML INJ ONE; +LACTATED RINGER'S 1,000 ML ONE; +METOPROLOL SUCC25 MG PO; +MIDAZOLAM HCL 2 MG/2 ML VIAL ONE; +MUPIROCIN 2% OINT 22 GM TUBE ONE; +ONDANSETRON HCL INJ 2MG/ML 2ML 2 MG/ML VIAL ONE; +Vancomycin IV 1 GM VIAL ONE; +[UNRECOGNIZED DRUG - OTHER] PO
[2023-01-20 07:50] VITALS: BP 121/71; PULSE 60; RESP 14; O2SAT 96
== END | disposition home or self-care (01) ==
LOC: OR 06:19
PROVIDERS: ATTEND Podiatrist Foot & Ankle Surgery
DX: M86.671 Other chronic osteomyelitis, right ankle and foot (principal); E11.42 Type 2 diabetes mellitus with diabetic polyneuropathy; L97.516 Non-pressure chronic ulcer of other part of right foot with bone involvement without evidence of necrosis; I70.235 Atherosclerosis of native arteries of right leg with ulceration of other part of foot; E11.51 Type 2 diabetes mellitus with diabetic peripheral angiopathy without gangrene; Z79.4 Long term (current) use of insulin; Z79.84 Long term (current) use of oral hypoglycemic drugs; I10 Essential (primary) hypertension; I48.91 Unspecified atrial fibrillation; Z79.01 Long term (current) use of anticoagulants; G47.33 Obstructive sleep apnea (adult) (pediatric); D64.9 Anemia, unspecified; C91.10 Chronic lymphocytic leukemia of B-cell type not having achieved remission; F32.A Depression, unspecified; Z01.810 Encounter for preprocedural cardiovascular examination; Z01.812 Encounter for preprocedural laboratory examination; Z79.899 Other long term (current) drug therapy; Z79.82 Long term (current) use of aspirin
CPT/HCPCS: 28820; 36415 ×2; 80048; 82948; 87071; 87075; 87205; 88305; 88311; 93005; J0131; J2250; J2405; J3010; J3370; J7121; 88304; J1100

== ENCOUNTER → 2023-03-19 | Outpatient (REF) | payer OTHER ==
[~2023-03-19] MED LIST changes: -ACETAMINOPHEN 1000 MG/100 ML IV ONE; -BUPIVACAINE HCL 0.5% INJ 30 ML VIAL INJ ONE; -CLINDAMYCIN PHOS 900MG/ 50ML 50 ML IV ONE; -DEXAMETHASONE SOD PHOS INJ 4 MG/ML SDV ONE; -FENTANYL CITRATE/PF 100MCG/2 ML INJ ONE; -LACTATED RINGER'S 1,000 ML ONE; -MIDAZOLAM HCL 2 MG/2 ML VIAL ONE; -MUPIROCIN 2% OINT 22 GM TUBE ONE; -ONDANSETRON HCL INJ 2MG/ML 2ML 2 MG/ML VIAL ONE; -Vancomycin IV 1 GM VIAL ONE
== END ==
LOC: MRI 09:38
PROVIDERS: ATTEND Podiatrist Foot & Ankle Surgery
DX: M86.9 Osteomyelitis, unspecified (principal)

== ENCOUNTER → 2023-08-16 | Day surgery (SDC) | payer OTHER ==
[2023-08-13 12:37] LABS: BASOPHILS # (AUTO) 0.1 (0.0-0.1); BASOPHILS % 0.4 % (0.0-1.0); EOSINOPHILS # (AUTO) 0.9 (0.0-0.4); EOSINOPHILS % 2.8 % (0.0-6.0); HEMATOCRIT 39.5 % (34.2-44.1); HEMOGLOBIN 13.2 g/dL (12.0-16.0); LYMPHOCYTES # (AUTO) 20.9 (1.0-3.2); LYMPHOCYTES % 64.5 % (18.0-39.1); MEAN CORPUSCULAR HEMOGLOBIN 29.3 pg (28-32); MEAN CORPUSCULAR HGB CONC 33.4 g/dL (31-35); MEAN CORPUSCULAR VOLUME 87.6 fL (81-99); NEUTROPHILS # (AUTO) 8.1 (2.1-6.9); NEUTROPHILS % 25.1 % (38.7-80.0); PLATELET COUNT 243 x10e3/uL (140-360); RED BLOOD COUNT 4.51 x10e6/uL (3.6-5.1); RED CELL DISTRIBUTION WIDTH 15.7 % (11.7-14.4); WHITE BLOOD COUNT 32.33 x10e3/uL (4.8-10.8)
[2023-08-13 12:47] LABS: INR 1.07; PARTIAL THROMBOPLASTIN TIME 24.3 seconds (23.8-35.5); PROTHROMBIN TIME 14.6 seconds (11.9-14.5)
[2023-08-13 12:51] LABS: ANION GAP 17.1 mmol/L (8-16); CALCIUM 9.4 mg/dL (8.4-10.2); CREATININE, SERUM 1.89 mg/dL (0.57-1.11); POTASSIUM 4.1 mmol/L (3.5-5.1)
[2023-08-13 15:19] LABS: BASOPHILS % (MANUAL) 1 % (0-1.5); EOSINOPHILS % (MANUAL) 2 % (0-7); METAMYELOCYTES % (MANUAL) 1 % (0-0); MONOCYTES % (MANUAL) 5 % (3.4-9.0)
[2023-08-13 15:21] LABS: PLATELET ESTIMATE ADEQUATE; PLATELET MORPHOLOGY COMMENT NORMAL; RBC MORPHOLOGY COMMENT NORMAL
[~2023-08-16] MED LIST changes: +ACETAMINOPHEN 1000 MG/100 ML 100 ML IV ONE; +BUPIVACAINE HCL 0.5% INJ 30 ML VIAL INJ ONE; +CIPRO500 MG PO; +CLINDAMYCIN PHOS 900MG/ 50ML 50 ML IV ONE; +CLOTRIMAZOLE-BE30 ML TOP; +COLISTIMETHATE150 MG TOP; +FAMOTIDINE 20 MG/2 ML VIAL IV ONE; +LIDOCAINE HCL 2% LOCAL INJ 5 ML SDV VIAL INJ ONE; +MIDAZOLAM HCL 2 MG/2 ML VIAL ONE; +MOUNJARO2.5 MG/0.5; +MUPIROCIN22 GM TOP; +NEOSTIGMINE 1 MG/ML 10ML VIAL ONE; +PROPOFOL IV EMULSION 10 MG/ML 20 ML VIAL ONE; +SANTYL TOP; +Vancomycin IV 1 GM VIAL ONE
[2023-08-16] MEDS: LACTATED RINGER'S 1,000 ML ONE (06:24)
[2023-08-16 08:22] VITALS: TEMP 97.9
[2023-08-16 08:45] VITALS: BP 144/84; PULSE 60; RESP 18; O2SAT 97
[2023-08-16 13:14] LABS: LYMPHOCYTES % (MANUAL) 51 % (19-48); NEUTROPHILS % (MANUAL) 36 % (40-74); REACTIVE LYMPHOCYTES 4
== END | disposition home or self-care (01) ==
LOC: OR 05:05
PROVIDERS: ATTEND Podiatrist Foot & Ankle Surgery
DX: E11.69 Type 2 diabetes mellitus with other specified complication (principal); M86.10 Other acute osteomyelitis, unspecified site; E11.621 Type 2 diabetes mellitus with foot ulcer; L97.514 Non-pressure chronic ulcer of other part of right foot with necrosis of bone; E11.42 Type 2 diabetes mellitus with diabetic polyneuropathy; E11.628 Type 2 diabetes mellitus with other skin complications; E11.22 Type 2 diabetes mellitus with diabetic chronic kidney disease; I12.9 Hypertensive chronic kidney disease with stage 1 through stage 4 chronic kidney disease, or unspecified chronic kidney disease; N18.30 Chronic kidney disease, stage 3 unspecified; G47.33 Obstructive sleep apnea (adult) (pediatric); I48.91 Unspecified atrial fibrillation; E78.5 Hyperlipidemia, unspecified; F32.A Depression, unspecified; Z88.6 Allergy status to analgesic agent; Z88.0 Allergy status to penicillin; Z01.810 Encounter for preprocedural cardiovascular examination; Z01.812 Encounter for preprocedural laboratory examination; Z79.4 Long term (current) use of insulin; Z79.85 Long-term (current) use of injectable non-insulin antidiabetic drugs; Z79.84 Long term (current) use of oral hypoglycemic drugs; Z79.02 Long term (current) use of antithrombotics/antiplatelets; Z79.82 Long term (current) use of aspirin; Z85.6 Personal history of leukemia
CPT/HCPCS: 15275; 28122; 36415 ×2; 80048; 82948; 85025; 85610; 85730; 88305; 88311; 93005; C1713; J0131; J2001; J2250; J2704; J3370; J7121; Q4152; 88304; J2710

== ENCOUNTER → 2024-02-02 | Outpatient (REF) | payer OTHER ==
[~2024-02-02] MED LIST changes: -ACETAMINOPHEN 1000 MG/100 ML 100 ML IV ONE; -BUPIVACAINE HCL 0.5% INJ 30 ML VIAL INJ ONE; -CLINDAMYCIN PHOS 900MG/ 50ML 50 ML IV ONE; -FAMOTIDINE 20 MG/2 ML VIAL IV ONE; -LIDOCAINE HCL 2% LOCAL INJ 5 ML SDV VIAL INJ ONE; -MIDAZOLAM HCL 2 MG/2 ML VIAL ONE; -NEOSTIGMINE 1 MG/ML 10ML VIAL ONE; -PROPOFOL IV EMULSION 10 MG/ML 20 ML VIAL ONE; -Vancomycin IV 1 GM VIAL ONE
[2024-02-02 10:45] LABS: BASOPHILS # (AUTO) 0.1 (0.0-0.1); BASOPHILS % 0.3 % (0.0-1.0); EOSINOPHILS # (AUTO) 0.7 (0.0-0.4); EOSINOPHILS % 1.4 % (0.0-6.0); HEMATOCRIT 44.7 % (34.2-44.1); HEMOGLOBIN 13.9 g/dL (12.0-16.0); LYMPHOCYTES # (AUTO) 34.4 (1.0-3.2); LYMPHOCYTES % 69.3 % (18.0-39.1); MEAN CORPUSCULAR HEMOGLOBIN 29.4 pg (28-32); MEAN CORPUSCULAR HGB CONC 31.1 g/dL (31-35); MEAN CORPUSCULAR VOLUME 94.5 fL (81-99); MONOCYTES # (AUTO) 3.2 (0.2-0.8); MONOCYTES % 6.5 % (4.4-11.3); NEUTROPHILS # (AUTO) 10.8 (2.1-6.9); NEUTROPHILS % 21.6 % (38.7-80.0); PLATELET COUNT 364 x10e3/uL (140-360); RED BLOOD COUNT 4.73 x10e6/uL (3.6-5.1)
[2024-02-02 11:19] LABS: WHITE BLOOD COUNT 49.63 x10e3/uL (4.8-10.8)
[2024-02-02 12:12] LABS: ERYTHROCYTE SEDIMENTATION RATE 11 mm/hr (0-20)
[2024-02-02 14:11] LABS: BASOPHILS % (MANUAL) 2 % (0-1.5); LYMPHOCYTES % (MANUAL) 40 % (19-48); MONOCYTES % (MANUAL) 3 % (3.4-9.0); NEUTROPHILS % (MANUAL) 37 % (40-74); PLATELET ESTIMATE ADEQUATE; REACTIVE LYMPHOCYTES 18
[2024-02-02 14:12] LABS: PLATELET MORPHOLOGY COMMENT NORMAL; RBC MORPHOLOGY COMMENT NORMAL
== END ==
LOC: MRI 09:27
PROVIDERS: ATTEND Podiatrist Foot & Ankle Surgery
DX: M86.9 Osteomyelitis, unspecified (principal)
CPT/HCPCS: 36415; 83036; 85025; 85651